=== PATIENT | female | born 1995 | race Caucasian/White ===

== ENCOUNTER 2023-11-14 19:23 | Emergency (ER) | payer MEDICAID | END 2023-11-14 19:57 | disposition left against medical advice (07) | LOC: MED 19:23 | DX: R10.9 Unspecified abdominal pain (principal); Z53.21 Procedure and treatment not carried out due to patient leaving prior to being seen by health care provider ==

== ENCOUNTER 2023-11-16 22:00 | Inpatient (IN) | payer MEDICAID ==
[~2023-11-16] VITALS: Ht 180.3 cm; Wt 108.9 kg
[2023-11-16 22:21] VITALS: BP 125/70; PULSE 81; RESP 18; TEMP 97.3; O2SAT 98
[2023-11-16 23:17] LABS: APPEARANCE,URINE CLEAR (CLEAR); BILIRUBIN,URINE NEGATIVE (NEGATIVE); BLOOD, URINE NEGATIVE (NEGATIVE); COLOR,URINE YELLOW (YELLOW); LEUKOCYTE ESTERASE ,URINE NEGATIVE (NEGATIVE); NITRITE, URINE NEGATIVE (NEGATIVE); PROTEIN,URINE NEGATIVE (NEGATIVE); UGLUCOSE NEGATIVE (NEGATIVE); UROBILINOGEN,URINE 0.2 EU/dL (0.2 - 1)
[2023-11-17] MEDS: NACL 0.9% 1,000 ML IV ONE (00:02)
[2023-11-17 00:05] LABS: BASOPHILS # (AUTO) 0.1 K/uL (0.00-0.22); BASOPHILS % (AUTO) 1.3 % (0.0-2.0); EOSINOPHILS # (AUTO) 0.2 K/uL (0-0.4); HEMATOCRIT 31.3 % (36-48); HEMOGLOBIN 9.9 g/dL (12.0-16.0); LYMPHOCYTES # (AUTO) 2.2 K/uL (2.5-16.5); LYMPHOCYTES % (AUTO) 22.5 % (20.5-51.1); MEAN CORPUSCULAR HEMOGLOBIN 22 pg (27-31); MEAN CORPUSCULAR HGB CONC 32 g/dL (33-37); MEAN CORPUSCULAR VOLUME 69.2 fL (80-94); MONOCYTES # (AUTO) 0.5 K/uL (0.8-1.0); MONOCYTES % (AUTO) 5.5 % (1.7-9.3); NEUTROPHILS # (AUTO) 6.6 K/uL (1.8-7.7); NEUTROPHILS % (AUTO) 68.7 % (42.2-75.2); PLATELET COUNT (AUTO) 333 K/uL (140-450); RED BLOOD CELL COUNT(AUTO) 4.52 MIL/uL (4.20-5.40); RED CELL DISTRIBUTION WIDTH 18.7 % (11.6-13.7); WHITE BLOOD COUNT (AUTO) 9.6 K/uL (4.8-10.8)
[2023-11-17 00:15] LABS: ANION GAP 12.7 (8-16); CALCIUM 9.4 mg/dL (8.5-10.1); CARBON DIOXIDE 25.7 mmol/L (21-32); CREATININE 0.7 mg/dL (0.6-1.3); POTASSIUM 4.4 mmol/L (3.5-5.1)
[2023-11-17] MEDS: KETOROLAC 30 MG/ML VIAL IVP ONE (00:15)
[2023-11-17] MEDS: ONDANSETRON 4 MG/2 ML VIAL IVP ONE (00:15)
[2023-11-17 00:22] LABS: ALBUMIN 3.6 g/dL (3.4-5.0); TOTAL BILIRUBIN 0.2 mg/dL (0.0-1.0); TOTAL PROTEIN, SERUM 7.5 g/dL (6.4-8.2)
[2023-11-17 02:55] LABS: LACTIC ACID 0.8 mmol/L (0.4-2.0)
[2023-11-17] MEDS ORDERED: PIPERACILLIN/TAZOBACTAM 3.375 GM VIAL IV ONE (03:00)
[2023-11-17] MEDS: PIPERACILLIN/TAZOBACTAM 3.375 GM in DEXTROSE 5% 50 ML IV ONE (03:22)
[2023-11-17] MEDS ORDERED: DOCUSATE SODIUM 100 MG GELCAP PO PRN (05:25)
[2023-11-17] MEDS ORDERED: POTASSIUM CHLORIDE 10 MEQ TABER PO PRN (05:25)
[2023-11-17] MEDS ORDERED: guaiFENesin DM 200/20 MG-10 ML 10 ML UDC PO PRN (05:25)
[2023-11-17] MEDS ORDERED: ACETAMINOPHEN 325 MG TAB PO PRN (05:25)
[2023-11-17 06:01] LABS: INR 0.97 (0.8-1.2); PARTIAL THROMBOPLASTIN TIME 22.3 secs (22-35.6); PROTHROMBIN TIME 10.2 secs (10.8-13.4)
[2023-11-17 06:05] VITALS: BP 111/61; PULSE 77; RESP 18; TEMP 97.7; O2SAT 98
[2023-11-17] MEDS: HYDROcodone/APAP 7.5/325 MG 1 TAB PO PRN (06:15)
[2023-11-17] MEDS: NACL 0.9% 1,000 ML IV SCH (06:16)
[2023-11-17] MEDS: PANTOPRAZOLE 40 MG TABEC PO SCH (08:48)
[2023-11-17 18:15] VITALS: BP 116/72; PULSE 85; RESP 18; TEMP 96.8; O2SAT 99
[2023-11-17 20:00] VITALS: BP 101/53; PULSE 83; RESP 18; TEMP 98; O2SAT 96
[2023-11-17] MEDS: MORPHINE SULFATE 2 MG/ML SYR IVP PRN (20:38)
[2023-11-18] MEDS: ZOLPIDEM 5 MG TAB PO PRN (01:18)
[2023-11-18] MEDS: KETOROLAC 30 MG/ML VIAL IVP SCH (02:03)
[2023-11-18 07:16] LABS: BASOPHILS % (AUTO) 0.1 % (0.0-2.0); HEMATOCRIT 33.2 % (36-48); HEMOGLOBIN 11.3 g/dL (12.0-16.0); LYMPHOCYTES # (AUTO) 1.1 K/uL (2.5-16.5); LYMPHOCYTES % (AUTO) 11.1 % (20.5-51.1); MEAN CORPUSCULAR HEMOGLOBIN 30 pg (27-31); MEAN CORPUSCULAR HGB CONC 34 g/dL (33-37); MEAN CORPUSCULAR VOLUME 89.4 fL (80-94); MONOCYTES # (AUTO) 0.3 K/uL (0.8-1.0); MONOCYTES % (AUTO) 3.2 % (1.7-9.3); NEUTROPHILS # (AUTO) 8.7 K/uL (1.8-7.7); NEUTROPHILS % (AUTO) 85.6 % (42.2-75.2); PLATELET COUNT (AUTO) 274 K/uL (140-450); RED BLOOD CELL COUNT(AUTO) 3.71 MIL/uL (4.20-5.40); RED CELL DISTRIBUTION WIDTH 12.9 % (11.6-13.7); WHITE BLOOD COUNT (AUTO) 10.1 K/uL (4.8-10.8)
[2023-11-18 08:00] VITALS: BP 102/56; PULSE 83; PULSE 91; RESP 18; TEMP 97.6; O2SAT 94; O2SAT 96
[2023-11-18] MEDS: ceFAZolin 2,000 MG VIAL ONE (10:30)
[2023-11-18 10:52] LABS: ALBUMIN 2.7 g/dL (3.4-5.0); ANION GAP 15.2 (8-16); CALCIUM 8.6 mg/dL (8.5-10.1); CARBON DIOXIDE 18.7 mmol/L (21-32); CREATININE 0.6 mg/dL (0.6-1.3); POTASSIUM 3.9 mmol/L (3.5-5.1); TOTAL BILIRUBIN 0.2 mg/dL (0.0-1.0); TOTAL PROTEIN, SERUM 6.1 g/dL (6.4-8.2)
[2023-11-18] MEDS: ACETAMINOPHEN 100 ML IV ONE (11:18)
[2023-11-18] MEDS: fentaNYL citrate 0.05 MG/ML VIAL ONE (11:22)
[2023-11-18] MEDS: MIDAZOLAM 2 MG/2 ML VIAL ONE (11:22)
[2023-11-18] MEDS: ONDANSETRON 4 MG/2 ML VIAL ONE ×2 (11:23)
[2023-11-18] MEDS: DEXAMETHASONE 4 MG/ML VIAL ONE ×2 (11:23)
[2023-11-18] MEDS: SUGAMMADEX SODIUM 200 MG/2 ML VIAL IV ONE ×2 (11:24)
[2023-11-18] MEDS: PROPOFOL 200 MG/20 ML VIAL IV ONE ×2 (11:24)
[2023-11-18] MEDS: ROCURONIUM 50 MG/5 ML VIAL IV ONE (11:24)
[2023-11-18] MEDS: SUCCINYLCHOLINE CHLORIDE 200 MG/10 ML VIAL IVP ONE (11:32)
[2023-11-18] MEDS: BUPIVACAINE-MPF 0.25% 30 ML VIAL INJ ONE (13:29)
[2023-11-18] MEDS: LIDOCAINE/EPI 1% 1:100000 20 ML VIAL INJ ONE (13:29)
[2023-11-18] MEDS: HYDROmorphone PFS 2 MG/ML SYR ONE (14:05)
[2023-11-18] MEDS: HYDROmorphone 1 MG/ML AMP IVP PRN (14:05)
[2023-11-18 16:00] VITALS: BP 136/72; PULSE 89; RESP 18; TEMP 97.9; O2SAT 95
[2023-11-18 20:00] VITALS: BP 124/72; PULSE 86; PULSE 89; RESP 18; TEMP 96.9; O2SAT 95; O2SAT 96
[2023-11-19 07:30] LABS: BASOPHILS # (AUTO) 0.1 K/uL (0.00-0.22); BASOPHILS % (AUTO) 0.7 % (0.0-2.0); EOSINOPHILS % (AUTO) 0.1 % (0.0-4.0); HEMATOCRIT 28.5 % (36-48); LYMPHOCYTES # (AUTO) 1.1 K/uL (2.5-16.5); LYMPHOCYTES % (AUTO) 9.5 % (20.5-51.1); MEAN CORPUSCULAR HEMOGLOBIN 22 pg (27-31); MEAN CORPUSCULAR HGB CONC 32 g/dL (33-37); MEAN CORPUSCULAR VOLUME 68.9 fL (80-94); MONOCYTES # (AUTO) 0.6 K/uL (0.8-1.0); MONOCYTES % (AUTO) 5.4 % (1.7-9.3); NEUTROPHILS # (AUTO) 9.7 K/uL (1.8-7.7); NEUTROPHILS % (AUTO) 84.3 % (42.2-75.2); PLATELET COUNT (AUTO) 328 K/uL (140-450); RED BLOOD CELL COUNT(AUTO) 4.14 MIL/uL (4.20-5.40); RED CELL DISTRIBUTION WIDTH 17.9 % (11.6-13.7); WHITE BLOOD COUNT (AUTO) 11.5 K/uL (4.8-10.8)
[2023-11-19 07:41] LABS: ALBUMIN 3.1 g/dL (3.4-5.0); ANION GAP 12.7 (8-16); CALCIUM 8.3 mg/dL (8.5-10.1); CARBON DIOXIDE 24.1 mmol/L (21-32); CREATININE 0.7 mg/dL (0.6-1.3); POTASSIUM 3.8 mmol/L (3.5-5.1); TOTAL BILIRUBIN 0.2 mg/dL (0.0-1.0); TOTAL PROTEIN, SERUM 6.9 g/dL (6.4-8.2)
[2023-11-19 08:00] VITALS: BP 118/64; PULSE 78; RESP 18; TEMP 98.6; O2SAT 95; O2SAT 97
[2023-11-19] MEDS: PIPERACILLIN/TAZOBACTAM 3.375 GM in DEXTROSE 5% 50 ML IV SCH (13:15)
[2023-11-19 16:00] VITALS: BP 128/60; PULSE 84; RESP 18; TEMP 98.2; O2SAT 96
[2023-11-19 20:33] VITALS: PULSE 88; RESP 20; O2SAT 95
[2023-11-19] MEDS: ONDANSETRON 4 MG/2 ML VIAL IM/IVP PRN (21:10)
[2023-11-19] MEDS: MELATONIN 3 MG TAB PO PRN (21:34)
[2023-11-19] MEDS: KETOROLAC 30 MG/ML VIAL IVP ONE (21:36)
[2023-11-20 00:49] VITALS: BP 144/84; PULSE 80; RESP 18; TEMP 97.6; O2SAT 99
[2023-11-20 04:00] VITALS: BP 114/74; PULSE 88; RESP 18; TEMP 97.4; O2SAT 96
[2023-11-20 07:16] LABS: BASOPHILS % (AUTO) 0.3 % (0.0-2.0); EOSINOPHILS # (AUTO) 0.1 K/uL (0-0.4); EOSINOPHILS % (AUTO) 1.9 % (0.0-4.0); HEMATOCRIT 28.1 % (36-48); LYMPHOCYTES # (AUTO) 1.2 K/uL (2.5-16.5); LYMPHOCYTES % (AUTO) 24.2 % (20.5-51.1); MEAN CORPUSCULAR HEMOGLOBIN 22 pg (27-31); MEAN CORPUSCULAR HGB CONC 32 g/dL (33-37); MONOCYTES # (AUTO) 0.3 K/uL (0.8-1.0); MONOCYTES % (AUTO) 6.4 % (1.7-9.3); NEUTROPHILS # (AUTO) 3.2 K/uL (1.8-7.7); NEUTROPHILS % (AUTO) 67.2 % (42.2-75.2); PLATELET COUNT (AUTO) 287 K/uL (140-450); RED BLOOD CELL COUNT(AUTO) 4.07 MIL/uL (4.20-5.40); RED CELL DISTRIBUTION WIDTH 17.6 % (11.6-13.7); WHITE BLOOD COUNT (AUTO) 4.8 K/uL (4.8-10.8)
[2023-11-20 07:35] LABS: ALBUMIN 3.1 g/dL (3.4-5.0); ANION GAP 12.5 (8-16); CALCIUM 8.4 mg/dL (8.5-10.1); CARBON DIOXIDE 25.7 mmol/L (21-32); CREATININE 0.8 mg/dL (0.6-1.3); POTASSIUM 4.2 mmol/L (3.5-5.1); TOTAL PROTEIN, SERUM 6.9 g/dL (6.4-8.2)
[2023-11-20 08:00] VITALS: BP 136/79; PULSE 87; PULSE 88; RESP 18; RESP 20; TEMP 97.8; O2SAT 95; O2SAT 96
[2023-11-20 16:00] VITALS: BP 140/69; PULSE 76; RESP 18; TEMP 97; O2SAT 97
[2023-11-20 20:00] VITALS: PULSE 79; RESP 20; O2SAT 97
[2023-11-20] MEDS: KETOROLAC 30 MG/ML VIAL IVP PRN (20:30)
[2023-11-21] VITALS: BP 125/78; PULSE 79; RESP 20; TEMP 97.3; O2SAT 97
[2023-11-21 06:58] LABS: BASOPHILS % (AUTO) 0.4 % (0.0-2.0); EOSINOPHILS # (AUTO) 0.2 K/uL (0-0.4); EOSINOPHILS % (AUTO) 3.2 % (0.0-4.0); HEMATOCRIT 29.3 % (36-48); HEMOGLOBIN 9.3 g/dL (12.0-16.0); LYMPHOCYTES # (AUTO) 1.2 K/uL (2.5-16.5); MEAN CORPUSCULAR HEMOGLOBIN 22 pg (27-31); MEAN CORPUSCULAR HGB CONC 32 g/dL (33-37); MONOCYTES # (AUTO) 0.5 K/uL (0.8-1.0); MONOCYTES % (AUTO) 8.1 % (1.7-9.3); NEUTROPHILS # (AUTO) 4.7 K/uL (1.8-7.7); NEUTROPHILS % (AUTO) 70.3 % (42.2-75.2); PLATELET COUNT (AUTO) 321 K/uL (140-450); RED BLOOD CELL COUNT(AUTO) 4.25 MIL/uL (4.20-5.40); RED CELL DISTRIBUTION WIDTH 17.9 % (11.6-13.7); WHITE BLOOD COUNT (AUTO) 6.6 K/uL (4.8-10.8)
[2023-11-21 07:21] LABS: ALBUMIN 3.2 g/dL (3.4-5.0); ANION GAP 12.7 (8-16); CALCIUM 8.7 mg/dL (8.5-10.1); CARBON DIOXIDE 25.1 mmol/L (21-32); CREATININE 0.8 mg/dL (0.6-1.3); POTASSIUM 3.8 mmol/L (3.5-5.1); TOTAL BILIRUBIN 2.6 mg/dL (0.0-1.0); TOTAL PROTEIN, SERUM 7.1 g/dL (6.4-8.2)
[2023-11-21 08:00] VITALS: BP 126/66; PULSE 80; RESP 18; RESP 20; TEMP 98.7; O2SAT 98
[2023-11-21 16:00] VITALS: BP 99/58; PULSE 75; RESP 18; TEMP 98.5; O2SAT 96
[2023-11-21 20:00] VITALS: PULSE 74; RESP 18; O2SAT 95
[2023-11-21] MEDS: MELATONIN 3 MG TAB PO PRN (20:39)
[2023-11-22] VITALS: BP 137/74; PULSE 74; RESP 18; TEMP 97.5; O2SAT 95
[2023-11-22 07:07] LABS: BASOPHILS % (AUTO) 0.5 % (0.0-2.0); EOSINOPHILS # (AUTO) 0.3 K/uL (0-0.4); EOSINOPHILS % (AUTO) 4.3 % (0.0-4.0); HEMATOCRIT 30.2 % (36-48); HEMOGLOBIN 9.9 g/dL (12.0-16.0); LYMPHOCYTES # (AUTO) 1.2 K/uL (2.5-16.5); LYMPHOCYTES % (AUTO) 18.4 % (20.5-51.1); MEAN CORPUSCULAR HEMOGLOBIN 22 pg (27-31); MEAN CORPUSCULAR HGB CONC 33 g/dL (33-37); MEAN CORPUSCULAR VOLUME 68.5 fL (80-94); MONOCYTES # (AUTO) 0.5 K/uL (0.8-1.0); MONOCYTES % (AUTO) 7.3 % (1.7-9.3); NEUTROPHILS # (AUTO) 4.7 K/uL (1.8-7.7); NEUTROPHILS % (AUTO) 69.5 % (42.2-75.2); PLATELET COUNT (AUTO) 343 K/uL (140-450); RED BLOOD CELL COUNT(AUTO) 4.41 MIL/uL (4.20-5.40); RED CELL DISTRIBUTION WIDTH 18.3 % (11.6-13.7); WHITE BLOOD COUNT (AUTO) 6.8 K/uL (4.8-10.8)
[2023-11-22 07:23] LABS: ALBUMIN 3.3 g/dL (3.4-5.0); ANION GAP 13.3 (8-16); CALCIUM 9.2 mg/dL (8.5-10.1); CARBON DIOXIDE 24.6 mmol/L (21-32); CREATININE 0.7 mg/dL (0.6-1.3); POTASSIUM 3.9 mmol/L (3.5-5.1); TOTAL BILIRUBIN 3.1 mg/dL (0.0-1.0); TOTAL PROTEIN, SERUM 7.3 g/dL (6.4-8.2)
[2023-11-22 08:00] VITALS: BP 106/57; PULSE 77; RESP 18; TEMP 98.9; O2SAT 97
[2023-11-22 09:00] VITALS: PULSE 68; RESP 20; O2SAT 99
[2023-11-22] MEDS: fentaNYL citrate 0.05 MG/ML VIAL ONE (13:42)
[2023-11-22] MEDS: MIDAZOLAM 2 MG/2 ML VIAL ONE (13:42)
[2023-11-22] MEDS: PROPOFOL 200 MG/20 ML VIAL IV ONE (13:43)
[2023-11-22] MEDS: ROCURONIUM 50 MG/5 ML VIAL IV ONE (13:43)
[2023-11-22] MEDS: ONDANSETRON 4 MG/2 ML VIAL ONE (13:43)
[2023-11-22] MEDS: SUCCINYLCHOLINE CHLORIDE 200 MG/10 ML VIAL IVP ONE (13:43)
[2023-11-22] MEDS: SUGAMMADEX SODIUM 200 MG/2 ML VIAL IV ONE (13:44)
[2023-11-22] MEDS: DEXAMETHASONE 4 MG/ML VIAL ONE (13:44)
[2023-11-22] MEDS ORDERED: ONDANSETRON 4 MG/2 ML VIAL IVP PRN (13:55)
[2023-11-22] MEDS ORDERED: ACETAMINOPHEN 100 ML IV SCH (13:55)
[2023-11-22] MEDS ORDERED: MEPERIDINE 25 MG/ML SYR IVP PRN (13:55)
[2023-11-22] MEDS ORDERED: HYDROmorphone 1 MG/ML AMP IVP PRN (13:55)
[2023-11-22] MEDS ORDERED: SEVOFLURANE 250 ML BTL INH ONE (14:22)
[2023-11-22] MEDS: PHENYLEPHRINE 10 MG/ML VIAL ONE (14:39)
[2023-11-22] MEDS: SODIUM 10 ML ONE ×2 (14:39)
[2023-11-22 16:00] VITALS: BP 142/79; PULSE 87; RESP 16; TEMP 98.5; O2SAT 100
[2023-11-22 20:00] VITALS: BP 130/77; PULSE 78; RESP 18; TEMP 98.4; O2SAT 98
[2023-11-23] MEDS: LACTATED RINGERS 1,000 ML IV SCH (01:26)
[2023-11-23 06:53] LABS: BASOPHILS % (AUTO) 0.4 % (0.0-2.0); EOSINOPHILS # (AUTO) 0.1 K/uL (0-0.4); EOSINOPHILS % (AUTO) 1.4 % (0.0-4.0); HEMATOCRIT 28.7 % (36-48); HEMOGLOBIN 9.3 g/dL (12.0-16.0); LYMPHOCYTES # (AUTO) 1.5 K/uL (2.5-16.5); LYMPHOCYTES % (AUTO) 20.7 % (20.5-51.1); MEAN CORPUSCULAR HEMOGLOBIN 22 pg (27-31); MEAN CORPUSCULAR HGB CONC 32 g/dL (33-37); MEAN CORPUSCULAR VOLUME 68.4 fL (80-94); MONOCYTES # (AUTO) 0.5 K/uL (0.8-1.0); MONOCYTES % (AUTO) 6.9 % (1.7-9.3); NEUTROPHILS # (AUTO) 5.2 K/uL (1.8-7.7); NEUTROPHILS % (AUTO) 70.6 % (42.2-75.2); PLATELET COUNT (AUTO) 367 K/uL (140-450); RED CELL DISTRIBUTION WIDTH 18.8 % (11.6-13.7); WHITE BLOOD COUNT (AUTO) 7.4 K/uL (4.8-10.8)
[2023-11-23 07:33] LABS: ALBUMIN 3.1 g/dL (3.4-5.0); CALCIUM 8.9 mg/dL (8.5-10.1); CARBON DIOXIDE 25.2 mmol/L (21-32); POTASSIUM 3.8 mmol/L (3.5-5.1); TOTAL BILIRUBIN 2.6 mg/dL (0.0-1.0); TOTAL PROTEIN, SERUM 7.1 g/dL (6.4-8.2)
[2023-11-23 08:00] VITALS: PULSE 74; RESP 18; O2SAT 97
[2023-11-23 08:21] LABS: ANION GAP 14.6 (8-16); CREATININE 0.8 mg/dL (0.6-1.3)
[2023-11-23] MEDS ORDERED: IBUP-2230 PO (12:51)
[2023-11-23 13:48] VITALS: BP 112/90; PULSE 64; RESP 18; TEMP 98.3
== END 2023-11-23 14:10 | disposition home or self-care (01) | DRG 263 ==
LOC: MED 22:00 → MMU 11-17 05:27 → MTU 11-17 05:40
PROVIDERS: ADMIT Student in an Organized Health Care Education/Training Program; ATTEND Student in an Organized Health Care Education/Training Program
PROC: 0FT44ZZ Resection of Gallbladder, Percutaneous Endoscopic Approach (ICD-10-PCS; principal; 2023-11-19)
PROC: 0FN44ZZ Release Gallbladder, Percutaneous Endoscopic Approach (ICD-10-PCS; 2023-11-19)
PROC: 0FJB8ZZ Inspection of Hepatobiliary Duct, Via Natural or Artificial Opening Endoscopic (ICD-10-PCS; 2023-11-22)
DX: K80.00 Calculus of gallbladder with acute cholecystitis without obstruction (principal); D62 Acute posthemorrhagic anemia; E66.01 Morbid (severe) obesity due to excess calories; Z68.33 Body mass index [BMI] 33.0-33.9, adult; R74.01 Elevation of levels of liver transaminase levels; E80.6 Other disorders of bilirubin metabolism
CPT/HCPCS: 36415; 71045; 74160; 76705; 78445; 80048; 80053; 80076; 81003; 83605; 83690; 85025; 85610; 85730; 86886; 86900; 86901; 87040; 87081; 88304; 96361; 96365; 96375; 99285; A9510; C1713; J0330; J0696; J1100; J1170; J1885; J2001; J2250; J2270; J2370; J2405; J2543; J2704; J3010; J3490; J7030; J7060; J7120; Q0092; Q9967

== ENCOUNTER 2024-02-24 13:46 | Emergency (ER) | payer MEDICAID ==
[~2024-02-24] VITALS: Ht 172.7 cm; Wt 113.4 kg
[~2024-02-24 13:46] MED LIST: IBUP-2230 PO
[2024-02-24 13:51] VITALS: BP 115/70; PULSE 107; RESP 20; TEMP 98.2; O2SAT 98
[2024-02-24 14:05] VITALS: O2SAT 98
[2024-02-24] MEDS ORDERED: ALUMINUM HYD/MAG/SIMETHICONE 30 ML UDC ONE (14:12)
[2024-02-24] MEDS ORDERED: DICYCLOMINE HCL LIQUID 10 MG/5 ML UDC ONE (14:13)
[2024-02-24] MEDS: ONDANSETRON 4 MG ODT PO ONE (14:15)
[2024-02-24] MEDS: DICYCLOMINE HCL LIQUID 20 MG, ALUMINUM HYD/MAG/SIMETHICONE 30 ML, LIDOCAINE VISCOUS 2% ... PO ONE (14:15)
[2024-02-24 14:20] LABS: BASOPHILS % (AUTO) 0.5 % (0.0-2.0); EOSINOPHILS # (AUTO) 0.3 K/uL (0-0.4); EOSINOPHILS % (AUTO) 3.9 % (0.0-4.0); HEMOGLOBIN 8.9 g/dL (12.0-16.0); LYMPHOCYTES # (AUTO) 1.7 K/uL (2.5-16.5); LYMPHOCYTES % (AUTO) 22.3 % (20.5-51.1); MEAN CORPUSCULAR HEMOGLOBIN 21 pg (27-31); MEAN CORPUSCULAR HGB CONC 31 g/dL (33-37); MONOCYTES # (AUTO) 0.5 K/uL (0.8-1.0); MONOCYTES % (AUTO) 6.5 % (1.7-9.3); NEUTROPHILS # (AUTO) 5.1 K/uL (1.8-7.7); NEUTROPHILS % (AUTO) 66.8 % (42.2-75.2); PLATELET COUNT (AUTO) 389 K/uL (140-450); RED BLOOD CELL COUNT(AUTO) 4.27 MIL/uL (4.20-5.40); RED CELL DISTRIBUTION WIDTH 18.6 % (11.6-13.7); WHITE BLOOD COUNT (AUTO) 7.6 K/uL (4.8-10.8)
[2024-02-24 14:39] LABS: APPEARANCE,URINE CLEAR (CLEAR); BILIRUBIN,URINE NEGATIVE (NEGATIVE); BLOOD, URINE NEGATIVE (NEGATIVE); COLOR,URINE YELLOW (YELLOW); LEUKOCYTE ESTERASE ,URINE TRACE (NEGATIVE); NITRITE, URINE NEGATIVE (NEGATIVE); PROTEIN,URINE NEGATIVE (NEGATIVE); UGLUCOSE NEGATIVE (NEGATIVE); UROBILINOGEN,URINE 0.2 EU/dL (0.2 - 1)
[2024-02-24 14:43] LABS: ALBUMIN 3.5 g/dL (3.4-5.0); ANION GAP 12.5 (8-16); CALCIUM 8.6 mg/dL (8.5-10.1); CARBON DIOXIDE 27.2 mmol/L (21-32); CREATININE 0.9 mg/dL (0.6-1.3); POTASSIUM 3.7 mmol/L (3.5-5.1); TOTAL BILIRUBIN 0.1 mg/dL (0.0-1.0); TOTAL PROTEIN, SERUM 7.6 g/dL (6.4-8.2)
[2024-02-24 14:50] LABS: BACTERIA,URINE 10-30 (MOD) /HPF (None Seen); MUCUS,URINE 1+ /LPF (None Seen); SQUAMOUS EPITHELIAL CELL,UR 4-10 (MOD) /LPF (0-3 (FEW))
[2024-02-24 16:13] VITALS: O2SAT 98
[2024-02-24] MEDS ORDERED: FAMO-90 PO (17:46)
[2024-02-24] MEDS ORDERED: CEPH-588 PO (17:46)
[2024-02-24] MEDS ORDERED: cefTRIAXone 1,000 MG VIAL ONE (18:04)
[2024-02-24] MEDS: NACL 0.9% 1,000 ML IV ONE (18:05)
[2024-02-24 18:06] VITALS: BP 121/68; PULSE 77; RESP 16; TEMP 98.2
[2024-02-24 18:07] LABS: AMPHETAMINE, URINE POSITIVE ng/ml (NEG <=1000); BARBITURATE, URINE NEGATIVE ng/ml (NEG <=200); BENZODIAZEPINE, URINE NEGATIVE ng/mL (NEG <=200)
[2024-02-24 18:08] LABS: CANNABINOID, URINE NEGATIVE ng/mL (NEG <=50); COCAINE, URINE NEGATIVE ng/mL (NEG <=300); OPIATE, URINE NEGATIVE ng/mL (NEG <=2000); PHENCYCLIDINE SCREEN,URINE NEGATIVE ng/mL (NEG <=25)
[2024-02-24 18:14] VITALS: O2SAT 97
== END 2024-02-24 20:18 | disposition home or self-care (01) ==
LOC: MED 13:46
DX: N39.0 Urinary tract infection, site not specified (principal); K29.70 Gastritis, unspecified, without bleeding; D64.9 Anemia, unspecified; Z90.49 Acquired absence of other specified parts of digestive tract; Z79.899 Other long term (current) drug therapy
CPT/HCPCS: 36415; 80053; 80305; 81001; 81025; 83690; 85025; 87086; 87186; 96365; 99284; J0696; J7030; Q0162

== ENCOUNTER 2024-03-29 20:17 | Emergency (ER) | payer MEDICAID ==
[~2024-03-29] VITALS: Ht 180.3 cm; Wt 147.9 kg
[~2024-03-29 20:17] MED LIST changes: +CEPH-588 PO; +FAMO-90 PO
[2024-03-29 20:25] VITALS: BP 108/64; PULSE 92; RESP 18; TEMP 98.6; O2SAT 100
[2024-03-29 20:58] VITALS: BP 114/52; PULSE 88; RESP 16; O2SAT 98
[2024-03-29 21:28] LABS: BASOPHILS % (AUTO) 0.3 % (0.0-2.0); EOSINOPHILS # (AUTO) 0.1 K/uL (0-0.4); EOSINOPHILS % (AUTO) 1.8 % (0.0-4.0); HEMATOCRIT 30.9 % (36-48); HEMOGLOBIN 9.6 g/dL (12.0-16.0); LYMPHOCYTES # (AUTO) 1.6 K/uL (2.5-16.5); LYMPHOCYTES % (AUTO) 21.9 % (20.5-51.1); MEAN CORPUSCULAR HEMOGLOBIN 21 pg (27-31); MEAN CORPUSCULAR HGB CONC 31 g/dL (33-37); MEAN CORPUSCULAR VOLUME 68.7 fL (80-94); MONOCYTES # (AUTO) 0.3 K/uL (0.8-1.0); MONOCYTES % (AUTO) 4.1 % (1.7-9.3); NEUTROPHILS # (AUTO) 5.2 K/uL (1.8-7.7); NEUTROPHILS % (AUTO) 71.9 % (42.2-75.2); PLATELET COUNT (AUTO) 356 K/uL (140-450); RED CELL DISTRIBUTION WIDTH 20.1 % (11.6-13.7); WHITE BLOOD COUNT (AUTO) 7.2 K/uL (4.8-10.8)
[2024-03-29 21:48] LABS: ALBUMIN 3.3 g/dL (3.4-5.0); TOTAL BILIRUBIN 0.2 mg/dL (0.0-1.0); TOTAL PROTEIN, SERUM 7.6 g/dL (6.4-8.2)
[2024-03-29 21:54] LABS: ANION GAP 9.1 (8-16); CALCIUM 8.4 mg/dL (8.5-10.1); CARBON DIOXIDE 29.2 mmol/L (21-32); CREATININE 0.8 mg/dL (0.6-1.3); POTASSIUM 4.3 mmol/L (3.5-5.1)
== END 2024-03-29 23:00 | disposition home or self-care (01) ==
LOC: MED 20:17
DX: N92.1 Excessive and frequent menstruation with irregular cycle (principal); Z79.899 Other long term (current) drug therapy
CPT/HCPCS: 36415; 76801; 80048; 80076; 81025; 84702; 85025; 86900; 86901; 99284; Q0092